=== PATIENT | female | born 1925 | race African-American/Black ===

== ENCOUNTER → 2016-12-04 | Outpatient (CLI) | payer MEDICARE, BC ==
[2016-12-04 12:41] LABS: Blood Urea Nitrogen 26 mg/dL (7-17); Non-African American GFR(MDRD) 54 (>60 ml/min/1.73 sqM)
--- NOTE | 2016-12-04 13:27 | CT ---
EXAMINATION TYPE: CT chest w con DATE OF EXAM: 12/04/2016 1:08 PM COMPARISON: NONE HISTORY: Chest mass/lump CT DLP: 96.8 mGycm Automated exposure control for dose reduction was used. CONTRAST: CT scan of the chest is performed with IV Contrast, patient injected with 80 mL of Visipaque 320. FINDINGS: LUNGS: There is hyperinflation compatible with COPD. No evidence for infiltrate. No nodule or mass is appreciated. No evidence for pleural effusion. MEDIASTINUM: There are no greater than 1 cm hilar or mediastinal lymph nodes. No pericardial effusi on is seen. Thoracic aorta is of normal caliber. The heart is enlarged. UPPER ABDOMEN: Renal cystic changes noted bilaterally. OTHER: No additional significant abnormality is seen. IMPRESSION: COPD without evidence for pulmonary mass or infiltrate.
== END | disposition home or self-care (01) ==
LOC: RADCTMAIN 11:59
PROVIDERS: ATTEND Family Medicine
DX: J44.9 Chronic obstructive pulmonary disease, unspecified (principal)
CPT/HCPCS: 82565; 84520; 71260; 36415; Q9967